=== PATIENT | female | born 1930 | race Hispanic/Latino ===

== ENCOUNTER 2017-01-13 14:40 | Emergency (ER) | payer MEDICARE ==
[2017-01-13 15:02] VITALS: TEMP 99.1; BMI 25.7
--- NOTE | 2017-01-13 15:22 | ED PDOC ---
Arrival/HPI - General Chief Complaint: Trauma Time Seen by Provider: 01/13/17 15:08 Historian: Patient (*/) - History of Present Illness Narrative History of Present Illness (Text): 01/13/17 15:20 86yo female with history of hypertension BIBA for evaluation s/p a mechanical fall. Patient states she tripped and fell this afternoon. she landed on her face against a side walk and injured her upper lip. Notes mild pain to her upper lip area. Denies LOC, nausea, vomiting, focal weakness, dizziness, back pain, neck pain, any other complaint. Past Medical History - Provider Review Nursing Documentation Reviewed: Yes - Cardiac Hx Cardiac Disorders: Yes Hx Hypertension: Yes - Pulmonary Hx Respiratory Disorders: No - Neurological Hx Neurological Disorder: No - HEENT Hx HEENT Disorder: No - Renal Hx Renal Disorder: No - Endocrine/Metabolic Hx Endocrine Disorders: No - Hematological/Oncological Hx Blood Disorders: No - Integumentary Hx Dermatological Disorder: No - Musculoskeletal/Rheumatological Hx Musculoskeletal Disorders: No - Gastrointestinal Hx Gastrointestinal Disorders: No - Genitourinary/Gynecological Hx Genitourinary Disorders: No - Psychiatric Hx Psychophysiologic Disorder: No Hx Substance Use: No - Surgical History Hx Hysterectomy: Yes Family/Social History - Physician Review Nursing Documentation Reviewed: Yes Family/Social History: Unknown Family HX Smoking Status: Never Smoked Hx Alcohol Use: No Hx Substance Use: No Allergies/Home Meds Allergies/Adverse Reactions: Allergies No Known Allergies Allergy (Verified 01/13/17 14:57) Review of Systems - Physician Review All systems were reviewed & negative as marked: Yes - Review of Systems Constitutional: Normal Eyes: Normal ENT: Other (Upper lip pain) Respiratory: Normal Cardiovascular: Normal Gastrointestinal: Normal Genitourinary Female: Normal Musculoskeletal: Normal Skin: Normal Neurological: Normal Endocrine: Normal Hemo/Lymphatic: Normal Psychiatric: Normal Physical Exam Vital Signs Reviewed: Yes Vital Signs Temp Pulse Resp BP Pulse Ox 01/13/17 17:44 89 18 145/79 96 01/13/17 16:28 98 H 18 148/89 95 01/13/17 14:57 99.1 F 110 H 17 152/97 H 92 L Temperature: Afebrile Blood Pressure: Normal Pulse: Tachycardic Respiratory Rate: Normal Appearance: Positive for: Well-Appearing, Non-Toxic, Comfortable Pain Distress: None Mental Status: Positive for: Alert and Oriented X 3 - Systems Exam Head: Present: Atraumatic, Normocephalic Pupils: Present: PERRL Extroacular Muscles: Present: EOMI Conjunctiva: Present: Normal Mouth: Present: Moist Mucous Membranes, Normal Teeth (No loose tooth noted). No : Normal Lips (Mild swelling of left upper lip with 0.5cm laceration on inner upper lip) Neck: Present: Normal Range of Motion Respiratory/Chest: Present: Clear to Auscultation, Good Air Exchange. No: Respiratory Distress, Accessory Muscle Use Cardiovascular: Present: Regular Rate and Rhythm, Normal S1, S2. No: Murmurs Abdomen: Present: Normal Bowel Sounds. No: Tenderness, Distention, Peritoneal Signs Back: Present: Normal Inspection Upper Extremity: Present: Normal Inspection. No: Cyanosis, Edema Lower Extremity: Present: Normal Inspection. No: Edema Neurological: Present: GCS=15, CN II-XII Intact, Speech Normal, Motor Func Grossly Intact, Normal Sensory Function, Normal Cerebellar Funct, Memory Normal , Normal 2Pt Descrimination, Other (No focal neurological deficit) Skin: Present: Warm, Dry, Normal Color. No: Rashes Psychiatric: Present: Alert, Oriented x 3, Normal Insight, Normal Concentration Medical Decision Making - RAD Interpretation Radiology Orders: 01/13/17 15:17 HEAD W/O CONTRAST [CT] Stat MAXILLOFACIAL W/O CONTRAST [CT] Stat - Medication Orders Current Medication Orders: Discontinued Medications Acetaminophen (Tylenol 325mg Tab) 650 mg PO STAT STA Stop: 01/13/17 17:28 Last Admin: 01/13/17 17:41 Dose: 650 mg Cephalexin Monohydrate (Keflex) 500 mg PO STAT STA PRN Reason: Protocol Stop: 01/13/17 17:29 Last Admin: 01/13/17 17:41 Dose: 500 mg Procedure: Wound Repair - Consent Obtained Consent obtained: Verbal - Performed by Performed by: Mid-level Provider - Indications Indication(s):: Laceration - Location Location:: Lip Shape:: Linear Dimensions Length cm: 0.5 - Anesthetic Technique Local/Regional Anesthetic:: Lidocaine 1% w/epi (2.0) - Debris Debris:: None - Irrigated Irrigated with ml of normal saline: 20 - Complexity Complexity:: Intermediate (2 layer) - Muscle repiar layer closed with Muscle repair layer closed with:: # (2), Size (4), Type (chromic), Technique, Wound well approximated, Tetanus up to date - Patient tolerated procedure Patient Tolerated Procedure:: Well Disposition/Present on Arrival - Present on Arrival Any Indicators Present on Arrival: No History of DVT/PE: No History of Uncontrolled Diabetes: No Urinary Catheter: No History of Decub. Ulcer: No History Surgical Site Infection Following: None - Disposition Have Diagnosis and Disposition been Completed?: Yes Diagnosis: Facial contusion, Lip laceration Disposition: HOME/ ROUTINE Disposition Time: 17:20 Patient Plan: Discharge Condition: STABLE Discharge Instructions (ExitCare): Laceration (ED), Facial Contusion (ED) Additional Instructions: Follow up with your doctor Return to ED for any new or worsening symptoms Prescriptions: Cephalexin [Keflex] 500 mg PO TID #21 capsule Referrals: PCP,NO [Primary Care Provider] - Follow up with primary
[2017-01-13 16:31] VITALS: RESP 18
--- NOTE | 2017-01-13 17:16 | CT ---
PROCEDURE: CT HEAD WITHOUT CONTRAST. HISTORY: head injury COMPARISON: None available. TECHNIQUE: Axial computed tomography images were obtained through the head/brain without intravenous contrast. Radiation dose: Total exam DLP = 677.45 mGy-cm. This CT exam was performed using one or more of the following dose reduction techniques: Automated exposure control, adjustment of the mA and/or kV according to patient size, and/or use of iterative reconstruction technique. FINDINGS: HEMORRHAGE: No intracranial hemorrhage. BRAIN: No mass effect or edema. Bilateral basal ganglia calcifications. Moderate scattered periventricular and subcortical white matter hypodensities, which are nonspecific, but often seen with chronic microvascular ischemic disease. Please note that MRI with diffusion imaging is more sensitive in the detection of acute ischemic event. VENTRICLES: No hydrocephalus. CALVARIUM: Unremarkable. PARANASAL SINUSES: Unremarkable as visualized. No significant inflammatory changes. MASTOID AIR CELLS: Unremarkable as visualized. No inflammatory changes. OTHER FINDINGS: Partial opacification of the left external auditory canal, likely cerumen. IMPRESSION: Moderate nonspecific white matter changes.
--- NOTE | 2017-01-13 17:25 | CT ---
PROCEDURE: CT MAXILLOFACIAL BONES WITHOUT CONTRAST HISTORY: nasolabial area pain COMPARISON: None TECHNIQUE: Contiguous axial CT images of the maxillofacial bones were obtained. Coronal and sagittal reformats were generated. Radiation dose: Total exam DLP = mGy-cm. This CT exam was performed using one or more of the following dose reduction techniques: Automated exposure control, adjustment of the mA and/or kV according to patient size, and/or use of iterative reconstruction technique. FINDINGS: NASAL BONES: UnremarkableNo evidence of acute fracture. Soft tissue swelling about the nose and upper lip. No abnormalities with respect to the hard palate or maxilla. [place]. ORBITS: Unremarkable. PARANASAL SINUSES/ MASTOIDS: Clear. MAXILLA: Unremarkable. MANDIBLE/ TEMPOROMANDIBULAR JOINTS: Unremarkable. SKULL BASE: Unremarkable. TEMPORAL BONES: Middle ears and mastoid grossly unremarkable. OTHER FINDINGS: Oral pharyngeal asymmetry lateral wall, tonsillar region on the left compared to the right. No abnormalities with respect to the epiglottis, piriform sinuses. Precise etiology of this finding is uncertain. Direct inspection of the oropharynx tension left side may be beneficial. IMPRESSION: 1. Soft tissue swelling about the nose and upper lip. No adjacent osseous abnormalities. 2. Oral pharyngeal asymmetry left side compared to right involving the right tonsil and vallecular. This study is not designed to more carefully assessed based finding. Direct inspection as the 1st step is advised.
[2017-01-13 17:45] VITALS: BP 145/79; PULSE 89; O2SAT 96
== END 2017-01-13 17:48 | disposition home or self-care (01) ==
LOC: ED 14:40
DX: S00.83XA Contusion of other part of head, initial encounter (principal); S01.511A Laceration without foreign body of lip, initial encounter; W01.0XXA Fall on same level from slipping, tripping and stumbling without subsequent striking against object, initial encounter; Y92.480 Sidewalk as the place of occurrence of the external cause; I10 Essential (primary) hypertension

== ENCOUNTER 2017-06-15 12:58 | Emergency (ER) | payer MEDICARE ==
[2017-06-15 12:58] VITALS: BMI 25.7
[2017-06-15] MEDS ORDERED: TDAP Vaccine 0.5 mL Syr IM ONE (13:34)
--- NOTE | 2017-06-15 14:26 | ED PDOC ---
Arrival/HPI - General Historian: Patient - History of Present Illness Time/Duration: Prior to Arrival Symptom Onset: Sudden Quality: Aching Severity Level: Mild Context: Walking, Exertion <Janina Berry - Last Filed: 06/15/17 16:35> <Toya Landon - Last Filed: 06/15/17 17:46> - General Chief Complaint: Trauma Time Seen by Provider: 06/15/17 13:14 - History of Present Illness Narrative History of Present Illness (Text): 06/15/17 14:23 87F w/PMH sig for HTN, one previous mechanical fall evaluated s/p fall. Pt reports she was walking outside, when she fell face forward without warning. Someone called EMS for her, she was BIBA. Pt reports nose pain and mouth pain. Denies LOC, dizziness, BOURGEOIS, vision changes, N/V/F/C, SOB, CP, palpitations, other complaints. States she remembers everything that happened, just does not know why it happened. PMH: HTN, Fall in 01/13 PSH: Hysterectomy All: NKDA SH: Denies ETOH, tobacco or illicit drug use; states she is very active with walking PMD: Condo (Janina Berry) Past Medical History - Provider Review Nursing Documentation Reviewed: Yes - Cardiac Hx Cardiac Disorders: Yes Hx Hypertension: Yes - Pulmonary Hx Respiratory Disorders: No - Neurological Hx Neurological Disorder: No - HEENT Hx HEENT Disorder: No - Renal Hx Renal Disorder: No - Endocrine/Metabolic Hx Endocrine Disorders: No - Hematological/Oncological Hx Blood Disorders: No - Integumentary Hx Dermatological Disorder: No - Musculoskeletal/Rheumatological Hx Musculoskeletal Disorders: No - Gastrointestinal Hx Gastrointestinal Disorders: No - Genitourinary/Gynecological Hx Genitourinary Disorders: No - Psychiatric Hx Psychophysiologic Disorder: No Hx Substance Use: No - Surgical History Hx Hysterectomy: Yes <Janina Berry - Last Filed: 06/15/17 16:35> Family/Social History - Physician Review Nursing Documentation Reviewed: Yes Family/Social History: No Known Family HX Smoking Status: Never Smoked Hx Alcohol Use: No Hx Substance Use: No <Janina Berry - Last Filed: 06/15/17 16:35> Allergies/Home Meds <Janina Berry - Last Filed: 06/15/17 16:35> <Toya Landon - Last Filed: 06/15/17 17:46> Allergies/Adverse Reactions: Allergies No Known Allergies Allergy (Verified 01/13/17 14:57) Home Medications: Home Meds Medication Instructions Recorded Confirmed Atorvastatin [Lipitor] 10 mg PO DAILY 06/15/17 06/15/17 Calcium Carbonate/Vitamin D3 1,000 mg PO DAILY 06/15/17 06/15/17 [Calcium 1,000 + D3 Caplet] Latanoprost 0.005% Opht [Xalatan 0.005 % .ROUTE DAILY 06/15/17 06/15/17 Opht] Review of Systems - Physician Review All systems were reviewed & negative as marked: Yes - Review of Systems Constitutional: Normal. absent: Fatigue Eyes: Normal. absent: Vision Changes, Photophobia ENT: Normal. absent: Sore Throat Respiratory: Normal. absent: SOB Cardiovascular: Normal. absent: Chest Pain, Palpitations, GUZM[place]N, Syncope Gastrointestinal: Normal. absent: Nausea, Vomiting Genitourinary Female: Normal. absent: Hematuria Musculoskeletal: Normal. absent: Neck Pain Skin: Other (abrasions of B/L hands, Left thumb, interior upper lip laceration) . absent: Normal Neurological: Normal. absent: Dizziness, Speech Changes Endocrine: Normal. absent: Diaphoresis <Janina Berry - Last Filed: 06/15/17 16:35> Physical Exam Vital Signs Reviewed: Yes Temperature: Afebrile Blood Pressure: Hypertensive Pulse: Tachycardic Respiratory Rate: Normal Appearance: Positive for: Non-Toxic, Comfortable Pain Distress: Mild Mental Status: Positive for: Alert and Oriented X 3 - Systems Exam Head: Present: Normocephalic. No: Atraumatic (blood over nasal bridge with small superficial abrasion) Extroacular Muscles: Present: EOMI Conjunctiva: Present: Normal Mouth: Present: Moist Mucous Membranes, Other (upper interior lip with small laceration at frenulum) Pharnyx: Present: Normal Nose (External): Present: Abrasion (over nasal bridge). No: Atraumatic Nose (Internal): Present: Other (interior aspect of nares with dried blood, unable to assess further) Respiratory/Chest: Present: Clear to Auscultation, Good Air Exchange. No: Respiratory Distress, Accessory Muscle Use Cardiovascular: Present: Regular Rate and Rhythm, Normal S1, S2. No: Murmurs Abdomen: Present: Normal Bowel Sounds. No: Tenderness, Distention, Peritoneal Signs Back: Present: Normal Inspection Upper Extremity: Present: Normal Inspection. No: Cyanosis, Edema Lower Extremity: Present: Normal Inspection. No: Edema Neurological: Present: GCS=15, CN II-XII Intact, Speech Normal Skin: Present: Warm, Dry, Laceration (interior aspect of middle upper lip), Abrasion (over nasal bridge, Left thumb, Left 1st digit distal aspect, small very superficial abrasion over right proximal palmar aspect) Psychiatric: Present: Alert, Oriented x 3, Normal Insight, Normal Concentration <Janina Berry - Last Filed: 06/15/17 16:35> Vital Signs Temp Pulse Resp BP Pulse Ox 06/15/17 16:00 90 17 170/99 H 94 L 06/15/17 14:58 98.2 F 90 H 178/101 H 93 L 06/15/17 13:00 98.0 F 100 H 18 187/98 H 93 L Medical Decision Making <Janina Berry - Last Filed: 06/15/17 16:35> - EKG Interpretation Interpreted by ED Physician: Yes Type: 12 lead EKG <Toya Landon - Last Filed: 06/15/17 17:46> ED Course and Treatment: 06/15/17 13:32 Pt seen/evaluated, will have wounds cleaned, give tetanus, lab work, imaging for possible syncope and Left hand fracture and pain control. (Janina Berry) A 87 year old female presents for evaluation after mechanical fall. In agreement with resident note, which includes further HPI details. Patient was seen and evaluated with resident, came up with plan and treatment together. 06/15/17 17:28 Patient with history of fall with recurrence of fall today; says she was fine before the fall; denies any symptoms or dizziness or any symptoms suggestive of near syncope prior to or after the fall; normal neuro and cardiac exam with unremarkable ekg and labs. Imaging with nondisplaced nasal bone fx; no other fx noted - no indication for admission; she is asymptomatic and has a pmd, Dr. Henry, that she says she can follow up with this week, as well as ENT follow up for the nasal bone fx. (Toya Landon) - Lab Interpretations Lab Results: 06/15/17 14:18 06/15/17 14:30 Lab Results 06/15/17 14:30: Sodium 141, Potassium 4.9, Chloride 104, Carbon Dioxide 28, Anion Gap 14, BUN 22 H, Creatinine 1.1, Est GFR ( Amer) 57, Est GFR (Non- Af Amer) 47, Random Glucose 114 H, Calcium 9.8, Magnesium 2.0, Total Bilirubin 1.0, AST 36, ALT 39, Alkaline Phosphatase 62, Lactate Dehydrogenase 610, Total Creatine Kinase 100, Troponin I < 0.01, Total Protein 7.5, Albumin 4.3, Globulin 3.2, Albumin/Globulin Ratio 1.3, Lipase 264 06/15/17 14:25: Urine Color Yellow, Urine Appearance Clear, Urine pH 6.0, Ur Specific [place] 1.020, Urine Protein Negative, Urine Glucose (UA) Negative, Urine Ketones Trace H, Urine Blood Negative, Urine Nitrate Negative, Urine Bilirubin Negative, Urine Urobilinogen 0.2, Ur Leukocyte Esterase Negative 06/15/17 14:18: PT 10.6, INR 0.98, APTT 23.3 L 06/15/17 14:18: WBC 11.0, RBC 4.63, Hgb 14.0, Hct 41.3, MCV 89.2, MCH 30.2, MCHC 33.9, RDW 13.4, Plt Count 203, MPV 10.6, Gran % 71.8 H, Lymph % (Auto) 21.5 L, [place] % (Auto) 5.5, Eos % (Auto) 1.0 L, Baso % (Auto) 0.2, Gran # 7.88 H , Lymph # 2.4, [place] # 0.6, Eos # 0.1, Baso # 0.02 - RAD Interpretation Radiology Orders: 06/15/17 13:34 HEAD W/O CONTRAST [CT] Stat MAXILLOFACIAL W/O CONTRAST [CT] Stat 06/15/17 13:42 HAND LEFT 3 VIEWS ROUTINE [RAD] Stat 06/15/17 14:34 CHEST TWO VIEWS (PA/LAT) [RAD] Stat - EKG Interpretation EKG Interpretation (Text): 06/15/17 17:45 sinus tachycardia @ 106; left axis deviation; normal intervals; normal axis; no ST/T changes. (Toya Landon) - Medication Orders Current Medication Orders: Discontinued Medications Acetaminophen (Tylenol 325mg Tab) 650 mg PO STAT STA Stop: 06/15/17 13:35 Last Admin: 06/15/17 13:56 Dose: 650 mg MAR Pain/Vitals Document 06/15/17 13:56 AB (Rec: 06/15/17 13:56 [id number] Pain Reassessment Is This A Pain ReAssessment? Yes Sleep Is patient sleeping during reassessment? No Presence of Pain Presence of Pain Yes Pain Scale Used Pain Scale Used Numeric Location Pain Location Body Site Face Description Constant Intensity 2 Scale Used Numeric Alleviating Factors Medication Tetanus/Reduced Diphtheria/Acell Pertussis (Boostrix Vaccine Inj) 0.5 ml IM .ONCE ONE Stop: 06/15/17 13:35 Last Admin: 06/15/17 13:52 Dose: 0.5 ml MAR Immunization Data Document 06/15/17 13:52 AB (Rec: 06/15/17 13:56 [id number] Immunization Data Vaccine Lot Number [id number] Vaccine Expiration Date 06/12/19 Site Given Left Deltoid Route Intramuscular Immunization Units ml - PA / 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 / has examined the patient and agrees with the treatment plan. <Toya Landon - Last Filed: 06/15/17 17:46> Disposition/Present on Arrival - Present on Arrival Any Indicators Present on Arrival: No History of DVT/PE: No History of Uncontrolled Diabetes: No Urinary Catheter: No History of Decub. Ulcer: No History Surgical Site Infection Following: None - Disposition Have Diagnosis and Disposition been Completed?: Yes Disposition Time: 16:35 Patient Plan: Discharge <Janina Berry - Last Filed: 06/15/17 16:35> <Toya Landon - Last Filed: 06/15/17 17:46> - Disposition Diagnosis: Fall from standing, Closed fracture nose Disposition: HOME/ ROUTINE Condition: STABLE Discharge Instructions (ExitCare): Nasal Fracture (ED), Fall Prevention for Older Adults (ED), Acute Wound Care (ED), Abrasion (ED), Fall Prevention (ED) Additional Instructions: Please take Motrin- can take 400mg every 8 hours as needed. Follow up with your primary care doctor this week. You may schedule an appointment with Dr. Saenz to evaluate your nasal fracture for possible intervention. Referrals: Abe Saenz DO [Doctor Osteopathy] - Follow up with primary Kyler Henry MD [Family Provider] - Follow up with primary Forms: [employer] ([place])
[2017-06-15 14:32] LABS: BASO # 0.02 K/mm3 (0.0-2.0); BASO % 0.2 % (0.0-3.0); EOS # 0.1 (0.0-0.7); GRAN # 7.88 (1.4-6.5); GRAN % 71.8 % (50.0-68.0); HEMATOCRIT 41.3 % (36.0-48.0); LYMPH # 2.4 (1.2-3.4); LYMPH % 21.5 % (22.0-35.0); MEAN CELL VOLUME 89.2 fl (80.0-105.0); MEAN CORPUSCULAR HEMOGLOBIN 30.2 pg (25.0-35.0); MEAN CORPUSCULAR HGB CONC 33.9 g/dl (31.0-37.0); MEAN PLATELET VOLUME 10.6 fl (7.0-11.0); MONO # 0.6 (0.1-0.6); MONO % 5.5 % (1.0-6.0); RED CELL DISTRIBUTION WIDTH 13.4 % (11.5-14.5)
[2017-06-15 14:32] LABS: URINE BILIRUBIN NEGATIVE (NEGATIVE); URINE BLOOD NEGATIVE (NEGATIVE); URINE GLUCOSE (UA) NEGATIVE (NEGATIVE); URINE KETONE TRACE mg/dL (NEGATIVE); URINE LEUKOCYTE ESTERASE NEGATIVE Leu/uL (NEGATIVE); URINE PROTEIN NEGATIVE mg/dL (<30 mg/dL); URINE UROBILINOGEN 0.2 E.U./dL (<1 E.U./dL)
[2017-06-15 14:34] LABS: URINE APPEARANCE CLEAR (CLEAR); URINE COLOR YELLOW (YELLOW)
[2017-06-15 14:38] LABS: INR 0.98 (0.93-1.08); PARTIAL THROMBOPLASTIN TIME 23.3 Seconds (23.7-30.8)
[2017-06-15 15:05] LABS: ALB/GLOB RATIO 1.3 (1.1-1.8); ALKALINE PHOSPHATASE 62 U/L (38-126); ALT/SGPT 39 U/L (7-56); AST/SGOT 36 U/L (14-36); BLOOD UREA NITROGEN 22 mg/dL (7-21); CALCIUM 9.8 mg/dL (8.4-10.5); CARBON DIOXIDE 28 mmol/L (21-33); CHLORIDE 104 mmol/L (98-107); GFR AFRICAN-AMERICAN 57; GLUCOSE,RANDOM 114 mg/dL (70-110); LIPASE 264 U/L (23-300); POTASSIUM 4.9 mmol/L (3.6-5.0); SODIUM 141 mmol/L (132-148); TOTAL PROTEIN 7.5 g/dL (5.8-8.3)
--- NOTE | 2017-06-15 15:14 | CT ---
PROCEDURE: CT HEAD WITHOUT CONTRAST. HISTORY: fall COMPARISON: 01/13/2017 TECHNIQUE: Axial computed tomography images were obtained through the head/brain without intravenous contrast. Radiation dose: Total exam DLP = 941 mGy-cm. This CT exam was performed using one or more of the following dose reduction techniques: Automated exposure control, adjustment of the mA and/or kV according to patient size, and/or use of iterative reconstruction technique. FINDINGS: HEMORRHAGE: No intracranial hemorrhage. BRAIN: No mass effect or edema. Severe chronic microvascular changes are seen in the periventricular white matter. VENTRICLES: Unremarkable. No hydrocephalus. CALVARIUM: Unremarkable. PARANASAL SINUSES: Unremarkable as visualized. No significant inflammatory changes. MASTOID AIR CELLS: Unremarkable as visualized. No inflammatory changes. OTHER FINDINGS: None. IMPRESSION: Severe chronic microvascular changes in the periventricular white matter. No acute findings
[2017-06-15 15:16] LABS: TROPONIN I < 0.01 ng/mL
--- NOTE | 2017-06-15 15:21 | CT ---
PROCEDURE: CT MAXILLOFACIAL BONES WITHOUT CONTRAST HISTORY: fall COMPARISON: None TECHNIQUE: Contiguous axial CT images of the maxillofacial bones were obtained. Coronal and sagittal reformats were generated. Radiation dose: Total exam DLP = 395 mGy-cm. This CT exam was performed using one or more of the following dose reduction techniques: Automated exposure control, adjustment of the mA and/or kV according to patient size, and/or use of iterative reconstruction technique. FINDINGS: NASAL BONES: There is a minimally displaced fracture of the right nasal bone. It is uncertain whether this is acute or chronic. Image 44 series 2 ORBITS: Unremarkable. PARANASAL SINUSES/ MASTOIDS: There is a mucous retention cyst in the right maxillary sinus MAXILLA: Unremarkable. MANDIBLE/ TEMPOROMANDIBULAR JOINTS: Unremarkable. SKULL BASE: Unremarkable. TEMPORAL BONES: Middle ears and mastoid grossly unremarkable. OTHER FINDINGS: None. IMPRESSION: Minimally displaced fracture of the right nasal bone, age uncertain No other facial fractures identified
--- NOTE | 2017-06-15 16:18 | RAD ---
HISTORY: fall COMPARISON: No prior. TECHNIQUE: Chest PA and lateral FINDINGS: LUNGS: No active pulmonary disease. PLEURA: No significant pleural effusion identified. No pneumothorax apparent. CARDIOVASCULAR: Moderate hiatal hernia with air/ fluid level. Normal heart size. No congestive change. OSSEOUS STRUCTURES: No significant abnormalities. VISUALIZED UPPER ABDOMEN: Normal. OTHER FINDINGS: None. IMPRESSION: Hiatal hernia. No infiltrate.
--- NOTE | 2017-06-15 16:18 | RAD ---
PROCEDURE: Left Hand Radiographs. HISTORY: Left 1st MTP swelling; s/p fall COMPARISON: None. FINDINGS: BONES: No fracture. No lytic or blastic osseous lesion. JOINTS: There is osteoarthritis of the 2nd 3rd and 4th distal interphalangeal joints and the 2nd through 5th proximal interphalangeal joints. 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 There are no articular erosions. No significant soft tissue swelling is appreciated. SOFT TISSUES: Normal. OTHER FINDINGS: None. IMPRESSION: Osteoarthritis of multiple joints as described. No acute fracture
[2017-06-15 16:32] VITALS: TEMP 98.2
[2017-06-15 16:33] VITALS: BP 170/99; PULSE 90; RESP 17; O2SAT 94
--- NOTE | 2017-06-15 22:04 | CARD ---
APPROVED REPORT EKG Measurement Heart [id number] <Conclusion> Sinus tachycardia Possible Left atrial enlargement Left axis deviation Left ventricular hypertrophy Abnormal ECG
== END 2017-06-15 17:12 | disposition home or self-care (01) ==
LOC: ED 12:58
DX: S02.2XXA Fracture of nasal bones, initial encounter for closed fracture (principal); W18.30XA Fall on same level, unspecified, initial encounter; Y93.01 Activity, walking, marching and hiking; I10 Essential (primary) hypertension; Z23 Encounter for immunization

== ENCOUNTER 2017-10-16 14:32 | Emergency (ER) | payer MEDICARE ==
[2017-10-16 15:05] VITALS: RESP 18; TEMP 98.4; BMI 25.4
--- NOTE | 2017-10-16 16:28 | CT ---
PROCEDURE: CT HEAD WITHOUT CONTRAST. HISTORY: head injury COMPARISON: 06/15/2017 TECHNIQUE: Axial computed tomography images were obtained through the head/brain without intravenous contrast. Radiation dose: Total exam DLP = 706.29 mGy-cm. This CT exam was performed using one or more of the following dose reduction techniques: Automated exposure control, adjustment of the mA and/or kV according to patient size, and/or use of iterative reconstruction technique. FINDINGS: HEMORRHAGE: No intracranial hemorrhage. BRAIN: No mass effect or edema. Minimal diffuse atrophy. Moderate patchy and confluent periventricular and deep white matter lucency consistent with microvascular white matter ischemic change. No evidence of acute infarct. VENTRICLES: Unremarkable. No hydrocephalus. CALVARIUM: Unremarkable. PARANASAL SINUSES: Unremarkable as visualized. No significant inflammatory changes. MASTOID AIR CELLS: Unremarkable as visualized. No inflammatory changes. OTHER FINDINGS: None. IMPRESSION: No intracranial hemorrhage. Chronic white matter ischemic change. Otherwise unremarkable.
[2017-10-16] MEDS ORDERED: Lidocaine 1% Inj (20ml) ONE (17:16)
--- NOTE | 2017-10-16 17:19 | ED PDOC ---
Arrival/HPI - General Chief Complaint: Trauma Time Seen by Provider: 10/16/17 15:32 Historian: Patient - History of Present Illness Narrative History of Present Illness (Text): 10/16/17 17:16 87yo female with PMHx of hyper lipdemia who present with complaint of headache and laceration to right forehead s/p trauma this afternoon. Pt notes that she lost her balance, fell and hit her right sided head on the ground. Notes history of multiple falls . Denies dizziness, LOC, nausea, vomiting, focal weakness, any other complaint. Past Medical History - Provider Review Nursing Documentation Reviewed: Yes - Cardiac Hx Cardiac Disorders: Yes Hx Hypertension: Yes - Pulmonary Hx Respiratory Disorders: No - Neurological Hx Neurological Disorder: No - HEENT Hx HEENT Disorder: No - Renal Hx Renal Disorder: No - Endocrine/Metabolic Hx Endocrine Disorders: No - Hematological/Oncological Hx Blood Disorders: No - Integumentary Hx Dermatological Disorder: No - Musculoskeletal/Rheumatological Hx Musculoskeletal Disorders: No - Gastrointestinal Hx Gastrointestinal Disorders: No - Genitourinary/Gynecological Hx Genitourinary Disorders: No - Psychiatric Hx Psychophysiologic Disorder: No Hx Substance Use: No - Surgical History Hx Hysterectomy: Yes Family/Social History - Physician Review Nursing Documentation Reviewed: Yes Family/Social History: Unknown Family HX Smoking Status: Never Smoked Hx Alcohol Use: No Hx Substance Use: No Allergies/Home Meds Allergies/Adverse Reactions: Allergies No Known Allergies Allergy (Verified 10/16/17 15:05) Home Medications: Home Meds Medication Instructions Recorded Confirmed Atorvastatin [Lipitor] 10 mg PO DAILY 06/15/17 10/16/17 Calcium Carbonate/Vitamin D3 1,000 mg PO DAILY 06/15/17 10/16/17 [Calcium 1,000 + D3 Caplet] Latanoprost 0.005% Opht [Xalatan 0.005 % .ROUTE DAILY 06/15/17 10/16/17 Opht] Review of Systems - Physician Review All systems were reviewed & negative as marked: Yes - Review of Systems Constitutional: Normal Eyes: Normal ENT: Normal Respiratory: Normal Cardiovascular: Normal Gastrointestinal: Normal Genitourinary Female: Normal Musculoskeletal: Normal Skin: Laceration Neurological: Headache. absent: Dizziness, Focal Weakness, Gait Changes, Speech Changes Endocrine: Normal Hemo/Lymphatic: Normal Psychiatric: Normal Physical Exam Vital Signs Reviewed: Yes Vital Signs Temp Pulse Resp BP Pulse Ox 10/16/17 17:20 89 18 162/84 H 95 10/16/17 14:59 98.4 F 98 H 18 170/92 H 94 L Temperature: Afebrile Blood Pressure: Normal Pulse: Regular Respiratory Rate: Normal Appearance: Positive for: Well-Appearing, Non-Toxic, Comfortable Pain Distress: None Mental Status: Positive for: Alert and Oriented X 3 - Systems Exam Head: Present: Atraumatic, Normocephalic Pupils: Present: PERRL Extroacular Muscles: Present: EOMI Conjunctiva: Present: Normal Mouth: Present: Moist Mucous Membranes Neck: Present: Normal Range of Motion Respiratory/Chest: Present: Clear to Auscultation, Good Air Exchange. No: Respiratory Distress, Accessory Muscle Use Cardiovascular: Present: Regular Rate and Rhythm, Normal S1, S2. No: Murmurs Abdomen: Present: Normal Bowel Sounds. No: Tenderness, Distention, Peritoneal Signs Back: Present: Normal Inspection Upper Extremity: Present: Normal Inspection. No: Cyanosis, Edema Lower Extremity: Present: Normal Inspection. No: Edema Neurological: Present: GCS=15, CN II-XII Intact, Speech Normal, Motor Func Grossly Intact, Normal Sensory Function, Normal Cerebellar Funct, Gait Normal, Memory Normal, Other (No focal neurological deficit) Skin: Present: Warm, Dry, Normal Color, Laceration (1.6 stellate shape laceration to right forehead). No: Rashes Psychiatric: Present: Alert, Oriented x 3, Normal Insight, Normal Concentration Medical Decision Making ED Course and Treatment: 10/17/17 00:28 Pt remain neurologically intact in ED. The edge of her laceration was approximated with 5 interrupted sutures. PT tolerated. She is UTD with her TD vaccine. Head CT - Negative. - RAD Interpretation Radiology Orders: 10/16/17 15:32 HEAD W/O CONTRAST [CT] Stat - Medication Orders Current Medication Orders: Discontinued Medications Acetaminophen (Tylenol 325mg Tab) 650 mg PO STAT STA Stop: 10/16/17 15:33 Last Admin: 10/16/17 16:08 Dose: 650 mg MAR Pain/Vitals Document 10/16/17 16:08 FRANCY (Rec: 10/16/17 16:08 [id number]) Pain Reassessment Is This A Pain ReAssessment? Yes Location Upper or Lower Upper Pain Location [employer] Description Intermittent Re-Assess: MAR Pain/Vitals Document 10/16/17 17:08 FRANCY (Rec: 10/16/17 17:24 [place] [facility] [id number] Pain Reassessment Is This A Pain ReAssessment? Yes Presence of Pain Presence of Pain Yes Procedure: Wound Repair - Time Performed Time Performed: 17:50 - Consent Obtained Consent obtained: Verbal - Performed by Performed by: Mid-level Provider - Indications Indication(s):: Laceration - Location Location:: Right, Face (Forehead) Shape:: Stellate Dimensions Length cm: 1.6 - Anesthetic Technique Anesthetic Technique: Local Local/Regional Anesthetic:: Lidocaine 1% (5ml) - Debris Debris:: None - Irrigated Irrigated with ml of normal saline: 40 - Complexity Complexity:: Intermediate (2 layer) - Muscle repiar layer closed with Muscle repair layer closed with:: # (5), Size (6), Type (absorvable), Technique (interrupted), Wound well approximated, Abx ointment applied, Tetanus up to date - Patient tolerated procedure Patient Tolerated Procedure:: Well Disposition/Present on Arrival - Present on Arrival Any Indicators Present on Arrival: No History of DVT/PE: No History of Uncontrolled Diabetes: No Urinary Catheter: No History of Decub. Ulcer: No History Surgical Site Infection Following: None - Disposition Have Diagnosis and Disposition been Completed?: Yes Diagnosis: Head injury Disposition: HOME/ ROUTINE Disposition Time: 17:50 Patient Plan: Discharge Condition: STABLE Discharge Instructions (ExitCare): Closed Head Injury Additional Instructions: Keep wound clean and dry Follow up with your doctor Return to ED for any redness, fever, purulent discharge from wound Referrals: Kyler Henry MD [Primary Care Provider] - Follow up with primary Forms: UGOBE (Latvian)
[2017-10-16 17:20] VITALS: BP 162/84; PULSE 89; O2SAT 95
== END 2017-10-16 17:59 | disposition home or self-care (01) ==
LOC: ED 14:32
DX: S01.81XA Laceration without foreign body of other part of head, initial encounter (principal); W19.XXXA Unspecified fall, initial encounter; I10 Essential (primary) hypertension